=== PATIENT | male | born 1975 | race Caucasian/White ===

== ENCOUNTER 2017-09-30 08:30 | Emergency (ER) | payer OTHER ==
--- NOTE | 2017-09-30 08:43 | EDM.PDOC ---
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 He has a nebulizer compressor at home in [place] but is here for 3 months, he will be picking up a compressor at [facility] on Monday. Mostly nocturnal symptoms at current however he is using his inhaler 3-4 times daily and is running out of his Proventil. No acute symptoms however he does have slight expiratory wheeze on exam No fever nausea vomiting chills sweats no chest pain shortness breath headache dizziness or palpitation no bowel or urine symptoms at current ] Review of systems: As per history of present illness and below otherwise all systems reviewed and negative. Past medical history: As per history of present illness and as reviewed below otherwise noncontributory. Surgical history: As per history of present illness and as reviewed below otherwise noncontributory. Social history: No reported history of drug or alcohol abuse. Family history: As per history of present illness and as reviewed below otherwise noncontributory. Physical exam: HEENT: Atraumatic, normocephalic, pupils reactive, negative for conjunctival pallor or scleral icterus, mucous membranes moist, throat clear, neck supple, nontender, trachea midline. Lungs: Clear to auscultation, breath sounds equal bilaterally, chest nontender. Heart: S1S2, regular, negative for clicks, rubs, or JVD. Abdomen: Soft, nondistended, nontender. Negative for masses or hepatosplenomegaly. Negative for costovertebral tenderness. Pelvis: Stable nontender. Genitourinary: Deferred. Rectal: Deferred. Extremities: Atraumatic, negative for cords or calf pain. Neurovascular unremarkable. Neuro: Awake, alert, oriented. Cranial nerves II through XII unremarkable. Cerebellum unremarkable. Motor and sensory unremarkable throughout. Exam nonfocal. Diagnostics: [Chest 2 views ] Therapeutics: [DuoNeb ] HFA Medrol Dosepak DuoNeb's one box patient will be purchasing compressor Impression: [Chronic asthma with exacerbation ] Definitive disposition and diagnosis as appropriate pending reevaluation and review of above. - Related Data Allergies Allergy/AdvReac Type Severity Reaction Status Date / Time No Known Allergies Allergy Verified 09/30/17 08:40 Home Meds: Home Meds Albuterol [Proventil Neb Soln] 09/30/17 [History] Cetirizine [ZyrTEC] 10 mg PO DAILY 09/30/17 [History] ED ROS GENERAL - Review of Systems Review Of Systems: See Below ED EXAM, GENERAL - Physical Exam Exam: See Below Course - Vital Signs Last Recorded V/S: Last Vital Signs Temp 96.8 F 09/30/17 08:41 Pulse 72 09/30/17 08:41 Resp 18 09/30/17 08:41 BP 111/67 09/30/17 08:41 Pulse Ox 93 L 09/30/17 08:41 - Orders/Labs/Meds Orders: Active Orders 24 hr Category Date Time Status RT Aerosol Therapy [RC] ASDIRECTED Care 09/30/17 09:00 Active Chest 2V [CR] Stat Exams 09/30/17 09:00 Ordered Meds: Medications Discontinued Medications Generic Name Dose Route Start Last Admin Trade Name Isaíasq PRN Reason Stop Dose Admin Albuterol/Ipratropium 3 ml 09/30/17 09:00 09/30/17 09:11 Duoneb 3.0-0.5 Mg/3 Ml NEB 09/30/17 09:01 3 ml ONETIME ONE Administration Departure - Departure Time of Disposition: 09:33 Disposition: Home, Self-Care 01 Condition: Good Clinical Impression: Exacerbation of asthma - Discharge Information Referrals: PCP,None [Primary Care Provider] - Forms: ED Department Discharge Additional Instructions: Medication as prescribed Nebulizer compressor can be purchased at [email or web address] Monday through Monday as discussed Return if symptoms persist or worsen Follow-up and establish care with primary care physician, call phone number below to schedule appropriate follow-up [facility] - Primary [facility] [address] [place] [id number] The following information is given to patients seen in the emergency department who are being discharged to home. This information is to outline your options for follow-up care. We provide all patients seen in our emergency department with a follow-up referral. The need for follow-up, as well as the timing and circumstances, are variable depending upon the specifics of your emergency department visit. If you don't have a primary care physician on staff, we will provide you with a referral. We always advise you to contact your personal physician following an emergency department visit to inform them of the circumstance of the visit and for follow-up with them and/or the need for any referrals to a consulting specialist. The emergency department will also refer you to a specialist when appropriate. This referral assures that you have the opportunity for follow-up care with a specialist. All of these measure are taken in an effort to provide you with optimal care, which includes your follow-up. Under all circumstances we always encourage you to contact your private physician who remains a resource for coordinating your care. When calling for follow-up care, please make the office aware that this follow-up is from your recent emergency room visit. If for any reason you are refused follow-up, please contact the [facility] emergency department at and asked to speak to the emergency department charge nurse. - My Orders Last 24 Hours: My Active Orders 09/30/17 09:00 RT Aerosol Therapy [RC] ASDIRECTED Chest 2V [CR] Stat - Assessment/Plan Last 24 Hours: My Active Orders 09/30/17 09:00 RT Aerosol Therapy [RC] ASDIRECTED Chest 2V [CR] Stat
[2017-09-30] MEDS ORDERED: Albuterol/Ipratropium 3.0-0.5 MG/3 ML Neb Soln NEB ONE (09:00)
--- NOTE | 2017-10-02 08:55 | CR ---
EXAM DATE: 09/30/17 PATIENT'S AGE: 41 Patient: CURTIS PALOMARES Facility: [place], [place] Site . Site : [id number] Study: XRay Chest [id number] 12:24:32 PM Ordering Physician: Nuvia Lombardi Final Report: INDICATION: pain/sob COMPARISON: None. FINDINGS: PA view of the chest demonstrates adequate inflation of the lungs. No focal airspace consolidation, pneumothorax or effusion. Cardiomediastinal silhouette is within normal limits. There are no acute osseous. IMPRESSION: Negative single PA view of the chest. Dictated by José Quinteros MD @ 09/30/2017 12:45:01 PM Dictated by: José Quinteros MD @ 09/30/2017 12:45:09 (Electronic Signature) Report Signed by Proxy. MTDRosa M
== END 2017-09-30 09:49 | disposition home or self-care (01) ==
LOC: MW.ED 08:30
DX: J45.901 Unspecified asthma with (acute) exacerbation (principal); Z79.899 Other long term (current) drug therapy
CPT/HCPCS: 71046; 71046-26; 94640; 99283; 99283-25